=== PATIENT | male | born 1960 | race Caucasian/White ===

== ENCOUNTER 2019-01-30 05:20 | Day surgery (SDC) | payer OTHER ==
[~2019-01-30] VITALS: Ht 180.3 cm; Wt 86.2 kg
[~2019-01-30 05:20] MED LIST: BAYER CHEWABLE81 MG PO
[2019-01-30 06:11] VITALS: BP 129/67; Ht 180.3 cm; Wt 86.2 kg
--- NOTE | 2019-01-30 08:17 | NUR ---
0810-REC'D FROM RR. DROWSY, EASILY AROUSED. IV PATENT AT KVO. VSS. AT BEDSIDE,CL IN EASY REACH,
--- NOTE | 2019-01-30 09:04 | NUR ---
0900-ABLE TO URINATE WITHOUT COMPLICATIONS. REMOVED IV WITH CATH INTACT. COVERED WITH BANDAID. REVIEWED DISCHARGE INSTRUCTIONS.VERBALIZED UNDERSTANDING. ESCORTED OUT VIA W/C BY VOLUNTEER. TO DRIVE HOME
--- NOTE | 2019-01-30 09:30 | OP ---
PATIENT NAME: ALFREDO LEONARDO MEDICAL RECORD: [id number] :58 LOCATION:D.[facility] ADMISSION DATE: SURGEON: GUILHERME MARVIN MD DATE OF OPERATION: 01/30/2019 SURGEON: Guilherme Marvin MD ANESTHESIA: TIVA by Dr. Robin Carter. DIAGNOSES: Obstructive benign prostatic hyperplasia, 30 gram prostate on digital rectal examination. IPSS is 6.5 and quality of life score is 3. PROCEDURE: UroLift times 4 units. FINDINGS: Bilateral lateral lobe hyperplasia with a tall bladder neck. Trabeculated bladder without any bladder tumors. Single ureteral orifices bilaterally. ESTIMATED BLOOD LOSS: None. 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 He has nocturia times 1 to 2. There is increased urinary frequency during the daytime along with urgency and one episode of urge incontinence. The stream is diminished and he has postvoid dribbling. Otherwise, he is in good health and he has no drug allergies. He was given Ancef community health education coordinator to the OR. DESCRIPTION OF PROCEDURE: The patient was given IV sedation. He was then placed into dorsal lithotomy position and prepped and draped. The UroLift scope was introduced. The lateral lobes are obstructive. The bladder neck was somewhat tall. The rest of the cystoscopy was as described above. We placed 2 units near the level of the bladder neck. These were placed 1.5 cm distal to the bladder neck in the anterolateral sulcus of the lateral lobe. One unit was placed on each side. This opened up the bladder neck region quite significantly. We then moved to the level of the verumontanum and again 1 unit was placed on each side at the end of the lateral sulcus of the lateral lobe. This fully opened up the anterior urethra. At this point, the bladder was left partly full. The scope was then removed. He will have a voiding trial today. I will see the patient in followup next week. TRANSINT:[id number] Voice Confirmation ID: [id number] DOCUMENT ID: [id number] GUILHERME MARVIN MD at 0930 CC: [id number] DICTATION DATE: 01/30/19 08 PIER MASTER ASSISTANT: 01/30/19 0915 [facility] 01/30/19 [id number] [place] [address]
== END 2019-01-30 09:00 | disposition home or self-care (01) ==
LOC: D.OPS 05:20
PROVIDERS: ATTEND Urology
DX: N40.1 Benign prostatic hyperplasia with lower urinary tract symptoms (principal); N13.8 Other obstructive and reflux uropathy

== ENCOUNTER 2019-06-05 07:08 | Inpatient (IN) | payer OTHER ==
[~2019-06-05] VITALS: Ht 180.3 cm; Wt 89.5 kg
[2019-06-06 12:45] LABS: BASOPHILS 0.1 % (0-2); EOSINOPHILS 2.6 % (0-7); HEMOGLOBIN 14.3 g/dL (13.5-17.5); IMMATURE GRANULOCYTES 0.4 % (0-5); LYMPHOCYTES 41.8 % (15-50); MCH 29.6 pg (26.0-34.0); MCHC 34.9 g/dL (31.0-37.0); MCV 84.9 fL (80.0-100.0); MEAN PLATELET VOLUME 8.7 fL (7.4-10.4); MONOCYTES 7.6 % (2-11); NEUTROPHILS 47.5 % (40-80); PLATELET COUNT 231 10x3/uL (130-400); RBC 4.83 10x6/uL (4.20-6.10); WBC 6.8 10x3/uL (4.8-10.8)
[2019-06-06 13:01] LABS: CALC OSMOLALITY 283 mosm/kg (275-300); CARBON DIOXIDE 27.9 mmol/L (21.0-32.0); CHLORIDE - SERUM 107 mmol/L (98-107); GLUCOSE 88 mg/dL (74-106); POTASSIUM - SERUM 4.1 mmol/L (3.5-5.1); SODIUM 142 mmol/L (136-145); UREA NITROGEN 17 mg/dL (7-18); eGFR NON AFRICAN AMERICAN 81 mL/min (90-120)
[2019-06-09 06:09] VITALS: BP 123/74; BMI 27.5
[2019-06-09 11:54] VITALS: BP 109/66
--- NOTE | 2019-06-09 12:13 | NUR ---
RECEIVED PT TO ROOM SPOUSE AT BEDSIDE, PT HAS 3 LAPSITES AND FOURTH DRESSING ON RT GARMENT STEAMER ALL CDI, NO NEEDS VOICED BY PT OR SPOUSE, CL IN REACH CONTINUE WITH PLAN OF CARE
--- NOTE | 2019-06-09 14:20 | NUR ---
PT LYING IN BED VS MACHINE WAS REMOVED FROM ROOM ,ED FREEMAN REMINDED US THAT PT IS TO BE ON CONTINUOUS PULSE OX, REPLACED VS MACHINE AND WILL CONTINUE TO MONITOR PT, INCENTIVE SPIROMETER PLACED IN ROOM FOR PT PT IS COUGHING AND SOUNDS PRODUCTIVE ENCOURAGED TO GET IT ALL OUT.
--- NOTE | 2019-06-09 15:50 | NUR ---
PT RESTING IN BED WITH SPOUSE AT BEDSIDE, O2 AT 95% ON ROOM AIR, NO NEEDS VOICED, CONTINUE WITH PLAN OF CARE
[2019-06-09 18:41] VITALS: BP 116/54; Ht 180.3 cm; Wt 89.5 kg
--- NOTE | 2019-06-09 19:15 | NUR ---
PT SITTING UP IN BED WITHOUT DISTRESS, AOX4. AND FRIEND AT BEDSIDE. IV RIGHT WRIST INFUSING NS @ 125. SCDS ON. PT USING INCENTIVE SPIROMETER AT BEDSIDE. CONT PULSE OX 99% ON RA. DRESSING TO RIGHT SIDE WITH SMALL AMOUNT OF BLOODY DRAINAGE, MARKED FOR NEW DRAINAGE. LAP SITES X3 CDI. DEMARCO IN PLACE. DENIES NEEDS AT THIS TIME. CL IN REACH, WILL CTM
[2019-06-09 20:54] VITALS: BP 114/70
--- NOTE | 2019-06-09 21:00 | NUR ---
PT SITTING UP IN BED, DENIES NEEDS OR PAIN. CONT PULSE OX 99% ON RA. AT BEDSIDE. WILL CTM
--- NOTE | 2019-06-10 00:30 | NUR ---
PT SLEEPING WITH AT BEDSIDE. DENIES PAIN OR NEEDS. VSS. WILL CTM
[2019-06-10 01:10] VITALS: BP 97/56
--- NOTE | 2019-06-10 01:18 | NUR ---
LEFT AT THIS TIME TO GO HOME. PT SLEEPING WITHOUT DISTRESS. WILL CTM
--- NOTE | 2019-06-10 03:30 | NUR ---
PT LYING IN BED RESTING WITHOUT DISTRESS, DENIES NEEDS. WILL CTM
--- NOTE | 2019-06-10 04:00 | NUR ---
PT SLEEPING UPON ENTERING ROOM. CONT PULSE OX 92%. WOKE PT UP AND HAD HIM TAKE DEEP BREATHS. BP 84/46. PT SAT UP AND STARTED USING INCENTIVE SPIROMETER AND TAKING SIPS OF WATER. BP RETAKE 96/56, O2 98%.
[2019-06-10 05:11] VITALS: BP 96/56
[2019-06-10 06:26] LABS: BASOPHILS 0 % (0-2); EOSINOPHILS 0.1 % (0-7); HEMATOCRIT 36.3 % (42.0-54.0); HEMOGLOBIN 12.5 g/dL (13.5-17.5); IMMATURE GRANULOCYTES 0.2 % (0-5); LYMPHOCYTES 16.6 % (15-50); MCH 30.1 pg (26.0-34.0); MCHC 34.4 g/dL (31.0-37.0); MCV 87.5 fL (80.0-100.0); MONOCYTES 9.3 % (2-11); NEUTROPHILS 73.8 % (40-80); PLATELET COUNT 228 10x3/uL (130-400); RBC 4.15 10x6/uL (4.20-6.10); RDW 13.4 % (11.5-14.5); WBC 11.2 10x3/uL (4.8-10.8)
--- NOTE | 2019-06-10 06:30 | NUR ---
PT STATES HE FEELS LIKE HIS BOWELS ARE STARTING TO MOVE. DOES NOT KNOW IF HE NEEDS TO HAVE BM OR JUST HAVING GAS. REQUESTED DEPENDS. PROVIDED LARGE DEPENDS AND ASSISTED PLACING ON PT. AID GOT THIS NURSE 10 MIN LATER STATING PT HAD SMALL BLACK LIQUID BM. ASSISTED CHANGING DEPENDS. DENIES OTHER NEEDS AT THIS TIME. CL IN REACH, WILL CTM
[2019-06-10 06:59] LABS: ALBUMIN 2.9 g/dL (3.4-5.0); ALKALINE PHOSPHATASE 59 U/L (46-116); ALT (SGPT) 19 U/L (10-68); BILIRUBIN - TOTAL 0.58 mg/dL (0.2-1.3); CALC OSMOLALITY 286 mosm/kg (275-300); CALCIUM 8.1 mg/dL (8.5-10.1); CARBON DIOXIDE 26.1 mmol/L (21.0-32.0); CHLORIDE - SERUM 112 mmol/L (98-107); CREATININE - SERUM 0.9 mg/dL (0.6-1.3); GLUCOSE 114 mg/dL (74-106); MAGNESIUM - SERUM 1.9 mg/dL (1.8-2.4); POTASSIUM - SERUM 4.6 mmol/L (3.5-5.1); PROTEIN - SERUM 5.4 g/dL (6.4-8.2); SODIUM 143 mmol/L (136-145); TROPONIN-I < 0.017 ng/mL (0.000-0.060); UREA NITROGEN 14 mg/dL (7-18); eGFR NON AFRICAN AMERICAN > 90 mL/min (90-120)
--- NOTE | 2019-06-10 07:00 | NUR ---
ALERT AND ORIENTED, RESTING IN BED EYES OPEN. NO C/O PAIN, EPIDURAL INFUSION MANAGING PAIN. ON CONTINUOUS PULSE OX, 98% RA. NO S/S OF ACUTE DISTRESS NOTED. POD #1 HOUSE COLECTOMY, INCISION TO RUQ DRESSING C/D/I. 3 LAP SITES TO ABDOMEN, C/D/I. SCDS ON. DEMARCO CATHETER PRESENT. IV TO RIGHT WRIST, NS INFUSING @ 125ML/HR. SITE PATENT WITHOUT REDNESS OR SWELLING. DENIES ANY NEEDS AT THIS TIME. CALL LIGHT IN REACH. WILL CONTINUE TO MONITOR.
[2019-06-10 09:05] VITALS: BP 120/78
--- NOTE | 2019-06-10 10:45 | NUR ---
LYING IN BED,WITHOUT DISTRESS. IS AT BEDSIDE.DENIES NEEDS
[2019-06-10 12:50] VITALS: BP 112/59
--- NOTE | 2019-06-10 15:20 | MORECARE ---
CASE MANAGEMENT DISCHARGE SUMMARY PATIENT: ALFREDO LEONARDO UNIT: [id number] ADM DATE: 06/09/19 AGE: 59 : 58 SEX: M ROOM/BED: D.2213 AUTHOR: BOB DUKE PHYSICIAN: REFERRING PHYSICIAN: HAM ESCOBAR MD DATE OF SERVICE: 06/10/19 Discharge Plan Patient Name: ALFREDO LEONARDO Facility: [facility]:[place] : 1960 Planned Disposition: Home Anticipated Discharge Date: Discharge Date: Expected LOS: Initial Reviewer: [email or web address] Initial Review Date: 06/09/2019 Generated: 06/10/19 4:19 pm Comments DCP- Discharge Planning Updated by [email or web address]: Shanice Andre on 06/10/19 2:[address] Patient Name: ALFREDO LEONARDO Admission Status: Elective Accout number: [id number] Admission Date: 06-09-2019 : 1960 Admission Diagnosis: Attending: HAM ESCOBAR Current LOS: 1 Anticipated DC Date: Planned Disposition: Home Primary Insurance: [employer] POS Discharge Planning Comments: CM met with patient to complete initial dc planning assessment. CM educated patient on the CM role and verbal consent given by patient to complete assessment. Patient lives at home with his independent with his care. At discharge patient plans to return home and feels this is a safe discharge. 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 CM discussed availability of home health, rehab services, and medical equipment. Patient denied known discharge needs at this time. CM will continue to follow and will assist as needed with dc plans/needs Tax Staff Accountant: Shanice Andre DCPIA - Discharge Planning Initial Assessment Updated by [email or web address]: Shanice Andre on 06/10/19 3:18 pm * Pharmacy [facility] [address] * Preadmission Environment Home with Family * ADLs Independent * Equipment None * List name and contact numbers for known caregivers / representatives who currently or will assist patient after discharge: JOEL () [phone] * Verbal permission to speak to the caregivers and representatives has been obtained from the patient. N/A * Community resources currently utilized None * Additional services required to return to the preadmission environment? No * Can the patient safely return to the preadmission environment? Yes * Has this patient been hospitalized within the prior 30 days at any hospital? No Patient Name: ALFREDO LEONARDO Page [phone] at 1520 All edits/amendments must be made on the electronic document DICTATION DATE: 06/10/191518 DISTRICT ATTORNEY: ANNE 06/10/191518 RPT#: [id number] DC DATE: STATUS: ADM IN [facility] [address] [place] [address] END OF REPORT
[2019-06-10 16:38] VITALS: BP 115/62
--- NOTE | 2019-06-10 18:50 | NUR ---
ALERT AND ORIENTED, RESTING IN BED. NO C/O PAIN. NO S/S OF ACUTE DISTRESS NOTED. DENIES ANY NEEDS AT THIS TIME. CALL LIGHT IN REACH. WILL CONTINUE TO MONITOR.
--- NOTE | 2019-06-10 19:25 | NUR ---
PT SITTING UP IN BED WITHOUT DISTRESS, AOX4. IV RIGHT WRIST INFUSING NS @ 125. INCISION TO RIGHT SIDE CDI, LAP SITES X3 CDI. EPIDURAL IN PLACE, STATES NO PAIN. CONT PULSE OX 98%. USING INCENTIVE SPIROMETER AT BEDSIDE. DEMARCO IN PLACE. SCDS ON. AT BEDSIDE, DENIES NEEDS AT THIS TIME. CL IN REACH, WILL CTM
[2019-06-10 19:30] VITALS: BP 124/64
[2019-06-11 00:59] VITALS: BP 102/55
[2019-06-11 05:34] VITALS: BP 107/55
--- NOTE | 2019-06-11 05:55 | NUR ---
PT CALLED THIS NURSE TO ROOM STATING HE WAS NOT SURE IF HAD BM OR GAS. ASSISTED PT IN CHANGING BRIEFS. HAD SMALL LIQUID BM. DENIES OTHER NEEDS. CL IN REACH, WILL CTM
--- NOTE | 2019-06-11 07:05 | NUR ---
ALERT AND ORIENTED, RESTING IN BED WITH EYES OPEN. NO C/O PAIN. NO S/S OF ACUTE DISTRESS NOTED. POD #2 HOUSE COLLECTOMY, DRESSING TO RIGHT ABDOMEN C/D/I. 3 LAP SITES TO ABDOMEN, BANDAIDS C/D/I. ON CONTINUOUS O2, O2 SAT @ 99% RA. IV TO RIGHT WRIST, NS INFUSING @ 125ML/HR. SITE PATENT WITHOUT REDNESS OR SWELLING. DENIES ANY NEEDS AT THIS TIME. CALL LIGHT IN REACH. WILL CONTINUE TO MONITOR.
--- NOTE | 2019-06-11 07:05 | NUR ---
PATIENT HAS DEMARCO CATHETER. SCDS PRESENT.
[2019-06-11 08:49] VITALS: BP 116/75
--- NOTE | 2019-06-11 16:15 | NUR ---
DISCONTINUED DEMARCO CATHETER, 1500ML OUT PUT.
[2019-06-11 17:03] VITALS: BP 115/72
--- NOTE | 2019-06-11 18:05 | NUR ---
I have reviewed this patient and I concur with the Shift Assessment completed by the Licensed Practical Nurse today this shift.
--- NOTE | 2019-06-11 18:05 | NUR ---
I have reviewed this patient and I concur with the Shift Assessment completed by the Licensed Practical Nurse today this shift.
--- NOTE | 2019-06-11 19:47 | NUR ---
UP IN RECLINER WITH FAMILY AT BEDSIDE. PLEASANT MOOD AND AFFECT, ABLE TO VOICE ALL NEEDS. DENIES PAIN AT THIS TIME. IV TO LEFT WRIST INFUSING VIA PUMP PER ORDERS, SITES TO ABD ARE CLEAN, DRY. DOES REQUEST TO SEE IF IV CAN BECOME SALINE LOC DUE TO GOOD ORAL INTAKE. WILL NOTE ANY CHANGE
[2019-06-11 20:00] VITALS: BP 121/78
--- NOTE | 2019-06-11 20:45 | NUR ---
DR. ESCOBAR AGREED TO REQUEST OF PT TO BE SALINE LOC AT THIS TIME. CHANGE MADE.
[2019-06-12] VITALS: BP 108/68
--- NOTE | 2019-06-12 01:31 | NUR ---
I have reviewed this patient and I concur with the Shift Assessment completed by the Licensed Practical Nurse today this shift.
[2019-06-12 04:00] VITALS: BP 112/86
--- NOTE | 2019-06-12 06:20 | NUR ---
UP IN RECLINER AT THIS TIME. SHOWS NO S/S OF ANY ACUTE DISTRESS. DENIES PAIN AT THIS TIME. REQUESTED ONE PAIN MEDICATION THIS SHIFT, AT 2200, GIVEN PER ORDERS AND DEEMED EFFECTIVE. WILL NOTE ANY CHANGE.
--- NOTE | 2019-06-12 07:19 | NUR ---
PT WAS AWAKE AND SITTING UP IN CHAIR. ALERT AND ORIENTATED. PT SHOWS NO SIGNS OF DISTRESS. PT C/O PAIN IN HIS ABDOMEN "DUE TO THE GAS" AND GENEVA SUPPLIED A NORCO-5 @ 0700. PT HAS NO OTHER C/O AT THIS TIME. PT IV IS IN THE R WRIST, SALINE LOC. IV IS PATENT WITH NO REDNESS, TENDERNESS, OR SWELLING. CALL LIGHT IN PLACE. WILL CONTINUE TO MONITOR.
[2019-06-12 08:00] VITALS: BP 127/84
--- NOTE | 2019-06-12 09:32 | MORECARE ---
CASE MANAGEMENT DISCHARGE SUMMARY PATIENT: ALFREDO LEONARDO UNIT: [id number] ADM DATE: 06/09/19 AGE: 59 : 58 SEX: M ROOM/BED: D.2213 AUTHOR: BOB DUKE PHYSICIAN: REFERRING PHYSICIAN: HAM ESCOBAR MD DATE OF SERVICE: 06/12/19 Discharge Plan Patient Name: ALFREDO LEONARDO Facility: [facility]:[place] : 1960 Planned Disposition: Home Anticipated Discharge Date: Discharge Date: Expected LOS: Initial Reviewer: [email or web address] Initial Review Date: 06/09/2019 Generated: 06/12/19 10:32 am Comments DCP- Discharge Planning Updated by [email or web address]: Shanice Andre on 06/12/19 8:[address] PATIENT DISCHARGING HOME TODAY WITHOUT ANY NEEDS FROM A CM STANDPOINT DCP- Discharge Planning Updated by [email or web address]: Shanice Andre on 06/10/19 2:[address] Patient Name: ALFREDO LEONARDO Admission Status: Elective Accout number: [id number] Admission Date: 06-09-2019 : 1960 Admission Diagnosis: Attending: HAM ESCOBAR Current LOS: 1 Anticipated DC Date: Planned Disposition: Home Primary Insurance[facility] Discharge Planning Comments: CM met with patient to complete initial dc planning assessment. CM educated patient on the CM role and verbal consent given by patient to complete assessment. Patient lives at home with his independent with his care. At discharge patient plans to return home and feels this is a safe discharge. 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 CM discussed availability of home health, rehab services, and medical equipment. Patient denied known discharge needs at this time. CM will continue to follow and will assist as needed with dc plans/needs Television Repairer: Shanice Andre DCPIA - Discharge Planning Initial Assessment Updated by [email or web address]: Shanice Andre on 06/10/19 3:18 pm * [facility] [address] * Preadmission Environment Home with Family * ADLs Independent * Equipment None * List name and contact numbers for known caregivers / representatives who currently or will assist patient after discharge: JOEL () [phone] * Verbal permission to speak to the caregivers and representatives has been obtained from the patient. N/A * Community resources currently utilized None * Additional services required to return to the preadmission environment? No * Can the patient safely return to the preadmission environment? Yes * Has this patient been hospitalized within the prior 30 days at any hospital? No Last DP export: 06/10/19 2:20 Patient Name: ALFREDO LEONARDO Page [phone] at 0932 All edits/amendments must be made on the electronic document DICTATION DATE: 06/12/19931 LEAD BUSINESS SYSTEMS ANALYST: ANNE 06/12/19931 RPT#: [id number] DC DATE: STATUS: ADM IN [facility] [address] [place] [address] END OF REPORT
--- NOTE | 2019-06-12 10:03 | NUR ---
PT GIVEN DISCHARGE INSTRUCTIONS, AND EXPRESSED UNDERSTANDING WITH NO QUESTIONS. IV WAS TAKEN OUT OF R WRIST, CATHETER TIP IN PLACE. NO S/S OF DISTRESS. PT LEFT VIA WHEELCHIAR WITH HOSPITAL STAFF. PT LEFT WITH IN PERSONAL CAR. DENIED ANY FURTHER NEEDS.
--- NOTE | 2019-06-13 14:28 | DS ---
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 PROCEDURES: Hand-assisted laparoscopic surgery -- right hemicolectomy. HOSPITAL COURSE: The patient was admitted for surgery. An epidural catheter was placed for postoperative pain relief. He underwent the above operative procedure. He did well postoperatively. He had a return of bowel function. The epidural catheter was removed. He was able to eat and void. He is being dismissed home on [place] as well as [place]. There is no need for him to follow up with me in the office as I will be seeing him here at work. TRANSINT:[id number] Voice Confirmation ID: [id number] DOCUMENT ID: [id number] HAM ESCOBAR MD at 1428 CC: RON JARAMILLO [id number] DICTATION DATE: 06/11/192042 PRELOAD SUPERVISOR: 06/12/19 0718 DIS IN 06/12/19 [facility] [address] [place] [address]
--- NOTE | 2019-06-13 16:57 | OP ---
PATIENT NAME: ALFREDO LEONARDO MEDICAL RECORD: [id number] :58 LOCATION:D.MS [address]13 ADMISSION DATE:06/09/19 SURGEON: HAM ESCOBAR MD DATE OF OPERATION: 06/09/2019 PREOPERATIVE DIAGNOSIS: Ascending colon mass. POSTOPERATIVE DIAGNOSES: Ascending colon mass. PROCEDURE: Hand-assisted laparoscopic surgery - right hemicolectomy. SURGEON: Ham Escobar MD POLICY DIRECTOR: None. BLOOD LOSS: 100 cc. ANESTHESIA: General. COMPLICATIONS: None. The risks, possible complications, and alternatives to the procedure were explained. A consent form was signed. OPERATIVE COURSE: The patient was conveyed to the operating room electively on 06/09/2019. General anesthesia was induced by the anesthesia staff. The patient was positioned supine. The abdomen was sterilely prepped and draped. A small skin ronak was accomplished in the left upper quadrant. A Veress needle was inserted through the skin ronak into the peritoneal cavity. CO2 insufflation was begun. Once sufficient pneumoperitoneum had been achieved, a 5-mm trocar was inserted through an incision in the umbilicus. Under direct internal vision utilizing a television camera, a 5-mm trocar was inserted through an incision in the epigastrium and a 5-mm trocar was inserted through an incision in the suprapubic area. During insertion of the Veress needle and all trocars, there appeared to have been no injury to the bowels, any intraperitoneal or retroperitoneal structures. An abdominal survey was undertaken. The patient has small likely asymptomatic indirect inguinal hernias bilaterally. I examined the liver, I noted no liver masses. I grasped the right colon and rolled it medially. I incised along the right white line of Toldt with the laparoscopic EnSeal device. I was able to do some further mobilization of the colon bluntly. I took down the retroperitoneal attachments to the hepatic flexure. In the right upper quadrant, a transverse incision was accomplished. Sharp dissection was carried down through skin and subcutaneous tissue. The external oblique muscle was along the direction of its fibers and the transversus abdominis muscles were along the direction. This was a muscle technique and not a muscle splitting technique. An Stu retractor was placed. Some further dissection was performed bluntly with my fingers. I exteriorized the right colon as well as the proximal OPERATIVE REPORT [id number] ALFREDO LEONARDO transverse colon. I chose the proximal extent of my resection to be the distal ileum. A window was created in the mesentery of the ileum and I stapled across the ileum with a ALVA-75 stapler. The distal extent of my resection was at the proximal transverse colon. A window was created in the mesocolon. I then stapled across the colon with a ALVA-75 stapler. The interpose mesentery was taken down or rather was sealed and divided with the Super Jaw EnSeal device. I then opened up the specimen on the back table. Indeed, the mass was present. I then changed gloves and gown. I scrubbed back in and placed the antimesenteric borders of the transverse colon and adapt side by side and kept these [address] with interrupted 3-0 Vicryl sutures. A small enterotomy and small colotomy were accomplished. Anvils of the ALVA-75 stapler were advanced and then fired. The resulting intracolonic defect was closed with a single firing of the TA 60 stapler. I returned the anastomosis to the intra-abdominal compartment. I irrigated the right upper quadrant and aspirated. There was no bleeding. The transverse abdominis muscle was closed with running #1 Vicryl. The internal oblique muscle was closed with a running #1 Vicryl. The external oblique muscle was closed with a running #1 Vicryl. The deep adipose tissue was closed with interrupted 3-0 Vicryls. The subcutaneous adipose tissue was closed with interrupted 3-0 Vicryls. The transverse incision in the right upper quadrant was closed with a running intracuticular 3-0 Vicryl. I then reinsufflated the abdomen. I placed a 5-mm camera down one of the trocars and examined the abdomen. There were a few blood clots in the right upper quadrant. These were aspirated. I then irrigated and aspirated in all quadrants and noted no evidence of bleeding. The 5-mm trocars were removed. The skin at the umbilicus was closed with interrupted 4-0 Vicryl Rapide sutures. The other skin incisions were closed with interrupted intracuticular 3-0 Vicryls. Benzoin and Steri-Strips were applied. The patient was then extubated and conveyed to post-anesthesia care unit where he was in stable condition. TRANSINT:[id number] Voice Confirmation ID: [id number] DOCUMENT ID: [id number] HAM ESCOBAR MD at 1657 CC: ABDIRAHMAN ANDERSON MD [id number] DICTATION DATE: 06/09/191917 NURSING PROGRAM COORDINATOR: 06/10/19 0351 DIS IN 06/12/19 [facility] [address] [id number]
--- NOTE | 2019-06-16 12:21 | MORECARE ---
CASE MANAGEMENT DISCHARGE SUMMARY PATIENT: ALFREDO LEONARDO UNIT: [id number] ADM DATE: 06/09/19 AGE: 59 : 58 SEX: M ROOM/BED: D.2213 AUTHOR: BOB DUKE PHYSICIAN: REFERRING PHYSICIAN: HAM ESCOBAR MD DATE OF SERVICE: 06/16/19 Discharge Plan Patient Name: ALFREDO LEONARDO Facility: [facility]:[place] : 1960 Planned Disposition: Home Anticipated Discharge Date: Discharge Date: 06/12/2019 Expected LOS: Initial Reviewer: [email or web address] Initial Review Date: 06/09/2019 Generated: 06/16/19 1:20 pm Comments DCP- Discharge Planning Updated by [email or web address]: Shanice Andre on 06/12/19 8:[address] PATIENT DISCHARGING HOME TODAY WITHOUT ANY NEEDS FROM A CM STANDPOINT DCP- Discharge Planning Updated by [email or web address]: Shanice Andre on 06/10/19 2:[address] Patient Name: ALFREDO LEONARDO Admission Status: Elective Accout number: [id number] Admission Date: 06-09-2019 : 1960 Admission Diagnosis: Attending: HAM ESCOBAR Current LOS: 1 Anticipated DC Date: Planned Disposition: Home Primary Insurance: [facility] [employer] [facility] [place] [place] Discharge Planning Comments: CM met with patient to complete initial dc planning assessment. CM educated patient on the CM role and verbal consent given by patient to complete assessment. Patient lives at home with his independent with his care. At discharge patient plans to return home and feels this is a safe discharge. 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 CM discussed availability of home health, rehab services, and medical equipment. Patient denied known discharge needs at this time. CM will continue to follow and will assist as needed with dc plans/needs Lactation Coordinator: Shanice Andre DCPIA - Discharge Planning Initial Assessment Updated by [email or web address]: Shanice Andre on 06/10/19 3:18 pm * Pharmacy [facility] [address] * Preadmission Environment Home with Family * ADLs Independent * Equipment None * List name and contact numbers for known caregivers / representatives who currently or will assist patient after discharge: JOEL () [phone] * Verbal permission to speak to the caregivers and representatives has been obtained from the patient. N/A * Community resources currently utilized None * Additional services required to return to the preadmission environment? No * Can the patient safely return to the preadmission environment? Yes * Has this patient been hospitalized within the prior 30 days at any hospital? No Last DP export: 06/12/19 8:32 Patient Name: ALFREDO LEONARDO Page [phone] at 1221 All edits/amendments must be made on the electronic document DICTATION DATE: 06/16/19 1220 AGRICULTURAL EXTENSION AGENT: ANNE 06/16/19 1220 RPT#: [id number] DC DATE:06/12/19 STATUS: DIS IN [facility] [address] [place] [address] END OF REPORT
== END 2019-06-12 10:00 | disposition home or self-care (01) | DRG 330 ==
LOC: D.SDCHOLD 06-09 05:10 → D.MS 06-09 05:10 → D.SDCHOLD 06-09 07:00 → D.MS 06-09 11:38
PROVIDERS: Anesthesiology; ADMIT Surgery; ATTEND Surgery
PROC: 0DTF0ZZ Resection of Right Large Intestine, Open Approach (ICD-10-PCS; principal; 2019-06-09 07:00)
DX: D12.6 Benign neoplasm of colon, unspecified (principal); R71.0 Precipitous drop in hematocrit; K63.89 Other specified diseases of intestine